=== PATIENT | female | born 1985 | race Caucasian/White ===

== ENCOUNTER → 2022-07-16 14:39 | Outpatient (BNVA) | payer OTHER, SELFPAY | PROVIDERS: PCP Nurse Practitioner; Visit Provider Psychiatry & Neurology Neurology | DX: G40.909 Epilepsy, unspecified, not intractable, without status epilepticus (principal) | CPT/HCPCS: 99202 ==

== ENCOUNTER 2022-11-01 15:30 | Outpatient (AMB) | payer OTHER, SELFPAY ==
--- NOTE | 2022-11-01 15:31 | A.OFFVIS_ITS ---
Intake Vital Signs 11/01/22 15:33 Height 5 ft 8 in BP 138/82 Blood Pressure Location Lt brachial Position Sitting Pulse 85 Pulse Source Pulse Oximeter Pulse Oximetry (%) 100 Oxygen Delivery Method Room Air Intake Visit Reasons: 3 mo f/u for seizure disorder-confirmed Intake Note: Pt presents today for seizure disorder fup . States shes doing Keppra Allergies No Known Allergies Allergy (Verified 11/01/22 15:36) Medication List - Last Reconciled 11/01/22 by Diane Hdez MD gabapentin 300 mg PO TID lamotrigine (Lamictal) 50 mg PO BID lamotrigine 200 mg PO BID levetiracetam 500 mg PO BID meloxicam 15 mg PO DAILY methylprednisolone 4 mg PO DAILY HPI HPI Comments History of Present Illness Details 37y/o right handed female comes for follow up seizure disorder.she was started on Keppra 250mg bid along with lamotrigine 250mg bid she noticed a decrease in frequency of her seizures.she has had 6 seizures [facility] last visit. It starts with staring, zoning out sweaty, lip smacking, automatisms with hands , guttural noise lasting 1-5 min.she is tired and confused after the episode and she has urinary incontinence. she used to have 1-2 epsidoes a week History from previous visits- she was seen by Dr. Loving, Dr. Ray, Dr. Prakash, Dr. Bell in the past and wants to transfer care. She is not clear when her seizures started. she says she had auras- tingling ,out of body of body experience even as a child. Her friend who accompanies her describes the episode as staring with lip smacking, automatisms in her hands , sometimes urinary incontinence followed by sleep for 2-4 hrs - 1-2/week she has had a few tonic clonic movements-guttural sounds, tongue biting- rare - 1/month She is not clear when these episodes started. as per her friend she is very rigid when she has a seizure. History- - does not know more history, mother when patient was age 6 and she never met her day, grew up with grandparents Speech delay No motor delay Cognitive delay - hard time focusing Graduated high school [employer] for 1 year No head injury No alcohol or illegal drugs [facility] Medical History Anxiety Cognitive deficits Depression HPV (human papilloma virus) anogenital infection [employer] Migraine Seizure disorder Surgical History H/O wisdom tooth extraction Family History Mother Myocardial infarct Maternal Grandmother CHF (congestive heart failure) HTN (hypertension) Diabetes Maternal Grandfather HTN (hypertension) Diabetes Social History Alcohol intake: never Patient Tobacco Use Status: Former Tobacco user Physical Exam Vital Signs: Last Vital Signs Pulse 85 11/01/22 15:33 BP 138/82 11/01/22 15:33 Pulse Ox 100 11/01/22 15:33 Oxygen Delivery Method Room Air 11/01/22 15:33 Const General: cooperative and comfortable Nutritional Appearance: average body habitus Orientation/consciousness: patient oriented x3 Eyes Pupils: Equal, round and reactive pupils present Neuro Other: speech impediment Gait- antalgic gait, can tandem General: patient oriented x3, tone normal, moves all extremities and no focal motor deficits Cranial nerves: Yes Facial sensation intact/muscles of mastication intact, Yes Equal, round and reactive pupils present, Yes Bilaterally intact EOM present, Yes Nystagmus not present, Yes Normal facial strength present, Yes Midline tongue present, Yes Symmetric palate elevation present and Yes Ability to bila terally elevate shoulders present Cognition (Neuro): normal cognition Motor exam (neuro): 5/5 motor strength present throughout and Normal motor muscle tone present throughout Coordination: [id number] test normal Psych Appearance: grossly normal Assessment & Plan Assessment & Plan (1) Seizure disorder: Code(s): G40.909 - Epilepsy, unspecified, not intractable, without status epilepticus Plan Reports from [facility] Neurology, EEG and MRI reports Continue lamotrigine 250mg bid I will increase levetiracetam 500mg bid for better seizure control Discuss with PCP about seeing a Corporate Driver for scoliosis November 12 [facility] epilepsy clinic for further management Medications: Changed From levetiracetam (Keppra) 250 mg PO BID 60 tabs 3RF To levetiracetam 500 mg PO BID 60 tabs 3RF Coding Level of Care Code Est Pt Level 4 (40471) Diagnoses Seizure disorder G40.909
[2022-11-01 15:33] VITALS: BP 138/82; PULSE 85; O2SAT 100
== END 2022-11-01 15:53 | disposition home or self-care (01) ==
PROVIDERS: Visit Provider Psychiatry & Neurology Neurology
DX: G40.909 Epilepsy, unspecified, not intractable, without status epilepticus (principal)
CPT/HCPCS: 99214

== ENCOUNTER → 2022-11-01 15:30 | Outpatient (BNVA) | payer OTHER, SELFPAY | PROVIDERS: Visit Provider Psychiatry & Neurology Neurology | DX: G40.909 Epilepsy, unspecified, not intractable, without status epilepticus (principal) | CPT/HCPCS: 99212 ==